=== PATIENT | male | born 1960 | race Caucasian/White ===

== ENCOUNTER 2017-04-16 11:34 | Emergency (ER) | payer BC, MEDICAID ==
[2017-04-16] MEDS ORDERED: Sodium Chloride 0.9% 1,000 ML IV ONE (11:46)
--- NOTE | 2017-04-16 12:01 | EDM.PDOC ---
ED HPI GENERAL MEDICAL PROBLEM - General Chief Complaint: General Stated Complaint: unresponsive 04/15 Time Seen by Provider: 04/16/17 11:45 Source of Information: Reports: Patient History Limitations: Reports: No Limitations - History of Present Illness INITIAL COMMENTS - FREE TEXT/NARRATIVE: This 57 yo male patient reports to the ED due to an episode of becoming unresponsive last night. The patient reports he was getting a message from his last night when he became unresponsive. According to the patient, his had called 911, but he woke up prior to EMS arrival and refused service. The patient reports that he continues to feel a little off today. The patient reports he is feeling very tired and out of energy today. The patient reports he has been under increased stress over the past couple of days. The patient reports he has been eating and drinking fine with no changes to his bowels. The patient denies a fever or cough. Onset Date: 04/15/17 Duration: Constant (but his symptoms are improving) Location: Reports: Generalized Quality: Reports: Pressure Severity: Mild Improves with: Reports: None Worsens with: Reports: None Associated Symptoms: Reports: Weakness (generalized). Denies: Chest Pain, Cough , Fever/Chills, Nausea/Vomiting, Shortness of Breath Back Pain Score (Numeric/FACES): 4 - Related Data Allergies Allergy/AdvReac Type Severity Reaction Status Date / Time No Known Allergies Allergy Verified 04/16/17 11:40 Home Meds: Home Meds Naproxen Sodium [Aleve] 2 cap PO DAILY 04/16/17 [History] Past Medical History Musculoskeletal History: Reports: Back Pain, Chronic - Infectious Disease History Infectious Disease History: Reports: Chicken Pox, Measles, Mumps - Past Surgical History Musculoskeletal Surgical History: Reports: Other (See Below) Other Musculoskeletal Surgeries/Procedures:: back fusion Social & Family History - Family History Family Medical History: Noncontributory ED ROS GENERAL - Review of Systems Review Of Systems: ROS reveals no pertinent complaints other than HPI. ED EXAM, GENERAL - Physical Exam Exam: See Below Exam Limited By: No Limitations General Appearance: Alert, WD/WN, No Apparent Distress Eye Exam: Bilateral Eye: EOMI, Normal Inspection, PERRL Ears: Normal External Exam, Normal Canal, Hearing Grossly Normal, Normal TMs Nose: Normal Inspection, Normal Mucosa, No Blood Throat/Mouth: Normal Inspection, Normal Lips, Normal Teeth, Normal Gums, Normal Oropharynx, Normal Voice, No Airway Compromise Head: Atraumatic, Normocephalic Neck: Normal Inspection, Supple, Non-Tender, Full Range of Motion Respiratory/Chest: No Respiratory Distress, Lungs Clear, Normal Breath Sounds, No Accessory Muscle Use, Chest Non-Tender Cardiovascular: Normal Peripheral Pulses, Regular Rate, Rhythm, No Edema, No Gallop, No JVD, No Murmur, No Rub GI/Abdominal: Normal Bowel Sounds, Soft, Non-Tender, No Organomegaly, No Distention, No Abnormal Bruit, No Mass (Male) Exam: Deferred Rectal (Males) Exam: Deferred Back Exam: Normal Inspection, Full Range of Motion, NT Extremities: Normal Inspection, Normal Range of Motion, Non-Tender, Normal Capillary Refill, No Pedal Edema Neurological: Alert Psychiatric: Anxious Skin Exam: Warm, Dry, Intact, Normal Color, No Rash Lymphatic: No Adenopathy Course - Vital Signs Last Recorded V/S: Last Vital Signs Temp 36.6 C 04/16/17 12:00 Pulse 70 04/16/17 12:00 Resp 16 04/16/17 12:00 BP 156/98 H 04/16/17 12:00 Pulse Ox 99 04/16/17 12:00 - Orders/Labs/Meds Orders: Active Orders 24 hr Category Date Time Status EKG Documentation Completion [RC] URGENT Care 04/16/17 11:45 Active Chest 1V Frontal [CR] Urgent Exams 04/16/17 11:45 Taken Sodium Chloride 0.9% [Normal Saline] 1,000 ml Med 04/16/17 11:46 Active IV .BOLUS Medication Orders Sodium Chloride (Normal Saline) 1,000 mls @ 500 mls/hr IV .BOLUS ONE Stop: 04/16/17 13:45 Last Admin: 04/16/17 11:56 Dose: 500 mls/hr Labs: Laboratory Tests 04/16/17 04/16/17 Range/Units 11:56 11:56 WBC 8.9 (5.0-10.0) 10^3/uL RBC 4.82 (4.6-6.2) 10^6/uL Hgb 16.0 (14.0-18.0) g/dL Hct 44.9 (40.0-54.0) % MCV 93.2 (80-100) fL MCH 33.2 (27.0-34.0) pg MCHC 35.6 H (33.0-35.0) g/dL Plt Count 207 (150-450) 10^3/uL Neut % (Auto) 62.2 (42.2-75.2) % Lymph % (Auto) 27.1 (20.5-50.1) % Mitchell % (Auto) 9.4 H (2-8) % Eos % (Auto) 1.1 (1.0-3.0) % Baso % (Auto) 0.2 (0.0-1.0) % Sodium 133 L (135-145) mmol/L Potassium 3.6 (3.6-5.0) mmol/L Chloride 103 (101-111) mmol/L Carbon Dioxide 22.0 (21.0-31.0) mmol/L Anion Gap 11.6 BUN 14 (7-18) mg/dL Creatinine 0.7 (0.6-1.3) mg/dL Est Cr Clr Drug Dosing 117.32 mL/min Estimated GFR (MDRD) > 60 BUN/Creatinine Ratio 20.00 Glucose 101 (74-105) mg/dL Calcium 9.1 (8.4-10.2) mg/dl Total Bilirubin 0.9 (0.2-1.0) mg/dL AST 68 H (10-42) IU/L ALT 87 H (10-60) IU/L Alkaline Phosphatase 56 (42-121) IU/L Troponin I < 0.02 (0.00-0.02) ng/ml Total Protein 7.2 (6.7-8.2) g/dl Albumin 4.0 (3.2-5.5) g/dl Globulin 3.2 Albumin/Globulin Ratio 1.25 Meds: Medications Generic Name Dose Route Start Last Admin Trade Name Freq PRN Reason Stop Dose Admin Sodium Chloride 1,000 mls @ 500 mls/hr 04/16/17 11:46 04/16/17 11:56 Normal Saline IV 04/16/17 13:45 500 mls/hr .BOLUS ONE Administration Departure - Departure Time of Disposition: 12:32 Disposition: Home, Self-Care 01 Condition: Fair Clinical Impression: Syncope Qualifiers: Syncope type: vasovagal syncope Qualified Code(s): R55 - Syncope and collapse - Discharge Information Instructions: Vasovagal Syncope, Adult Forms: ED Department Discharge Care Plan Goals: The patient was advised of the examination, EKG, lab and x-ray results during the visit. The patient was encouraged to take it easy for the rest of today. If the patient has any additional symptoms or concerns, the patient should either follow-up with his primary care facility or return to the emergency department. - My Orders Last 24 Hours: My Active Orders 04/16/17 11:45 EKG Documentation Completion [RC] URGENT Chest 1V Frontal [CR] Urgent 04/16/17 11:46 Sodium Chloride 0.9% [Normal Saline] 1,000 ml IV .BOLUS - Assessment/Plan Last 24 Hours: My Active Orders 04/16/17 11:45 EKG Documentation Completion [RC] URGENT Chest 1V Frontal [CR] Urgent 04/16/17 11:46 Sodium Chloride 0.9% [Normal Saline] 1,000 ml IV .BOLUS
[2017-04-16 12:22] LABS: ANION GAP 11.6; CHLORIDE,CL 103 mmol/L (101-111); SODIUM,NA 133 mmol/L (135-145)
--- NOTE | 2017-04-17 12:20 | EKG ---
04/16/2017- EARNEST VIVAS - EKG per my reading shows sinus rhythm at a rate of 64. [facility] /[id number]
== END 2017-04-16 12:38 | disposition home or self-care (01) ==
LOC: DL.ED 11:34
DX: R55 Syncope and collapse (principal); Z79.899 Other long term (current) drug therapy; Z98.1 Arthrodesis status
CPT/HCPCS: 36415; 71045; 80053; 84484; 85025; 93005; 96360; 99284; J7030

== ENCOUNTER 2022-06-29 09:40 | Emergency (ER) | payer BC ==
[2022-06-29] MEDS ORDERED: Lidocaine 1% with EPINEPHrine 1:100,000 20 ML MDV INFILT ONE (10:00)
[2022-06-29] MEDS ORDERED: Diphtheria,Pertussis(Acell),Tetanus Vaccine 0.5 ML Syringe IM ONE (10:00)
[2022-06-29] MEDS ORDERED: Bacitracin Oint 1 GM U/D Packet TOP ONE (10:01)
[2022-06-29] MEDS ORDERED: Bupivacaine 0.5% 30 ML SDV INFILT ONE (10:01)
== END 2022-06-29 10:40 | disposition home or self-care (01) ==
LOC: DL.ED 09:40
DX: S51.812A Laceration without foreign body of left forearm, initial encounter (principal); Z23 Encounter for immunization; W26.8XXA Contact with other sharp object(s), not elsewhere classified, initial encounter
CPT/HCPCS: 12002; 90471; 90715; 99282; 99283; A9270; J3490

== ENCOUNTER 2024-07-10 06:50 | Day surgery (SDC) | payer BC, MEDICARE ==
[~2024-07-10 06:50] MED LIST: Propofol 200 MG/20 ML SDV ONE
[2024-07-10] MEDS ORDERED: Propofol 200 MG/20 ML SDV IV ONE (06:51)
[2024-07-10] MEDS ORDERED: Lidocaine 2% 20 ML MDV NERVRT ONE (06:51)
[2024-07-10] MEDS ORDERED: Lactated Ringers 1,000 ML IV ONE (06:51)
[2024-07-10] MEDS: Lactated Ringers 1,000 ML IV SCH (07:24)
[2024-07-10] MEDS ORDERED: Ketorolac 30 MG/ML SDV ONE (08:45)
[2024-07-10] MEDS ORDERED: Nitroglycerin 2% Oint 1 GM UD Packet ONE (08:45)
[2024-07-10] MEDS ORDERED: Metoprolol Tartrate 5 MG/5 ML SDV ONE (08:45)
[2024-07-10] MEDS ORDERED: Dexamethasone 4 MG/ML SDV ONE (08:45)
[2024-07-10] MEDS ORDERED: Ondansetron 4 MG/2 ML SDV ONE (08:45)
[2024-07-10] MEDS ORDERED: Oxytocin 10 Units/1 ML SDV ONE (08:45)
[2024-07-10] MEDS ORDERED: ePHEDrine 50 MG/ML SDV ONE (08:45)
[2024-07-10] MEDS ORDERED: diphenhydrAMINE 50 MG/ML SDV ONE (08:45)
[2024-07-10] MEDS ORDERED: Phenylephrine 1% 10 MG/ML SDV ONE (08:45)
[2024-07-10] MEDS ORDERED: Naloxone 2 MG/2 ML Syringe ONE (08:46)
[2024-07-10] MEDS ORDERED: Atropine 0.4 MG/ML SDV ONE (08:46)
[2024-07-10] MEDS ORDERED: Neostigmine Methylsulfate 10 MG/10 ML MDV ONE (08:46)
[2024-07-10] MEDS ORDERED: Labetalol 20 MG/4 ML Syringe ONE (08:46)
[2024-07-10] MEDS ORDERED: Glycopyrrolate 0.2 MG/ML 2 ML SDV ONE (08:46)
[2024-07-10] MEDS ORDERED: EPINEPHrine 1:10,000 1 MG/10 ML Syringe ONE (08:46)
[2024-07-10] MEDS ORDERED: Rocuronium 100 MG/10 ML MDV ONE (08:47)
[2024-07-10] MEDS ORDERED: Succinylcholine 200 MG/10 ML MDV ONE (08:47)
[2024-07-10] MEDS ORDERED: Lidocaine 2% 20 ML MDV ONE (08:47)
[2024-07-10] MEDS ORDERED: Propofol 200 MG/20 ML SDV ONE (08:48)
== END 2024-07-10 10:12 | disposition home or self-care (01) ==
LOC: DL.ENDO 06:50
PROVIDERS: ATTEND Internal Medicine Gastroenterology
DX: Z12.11 Encounter for screening for malignant neoplasm of colon (principal); D12.0 Benign neoplasm of cecum; K57.30 Diverticulosis of large intestine without perforation or abscess without bleeding; J45.909 Unspecified asthma, uncomplicated
CPT/HCPCS: 45385; 88305; J0330; J2003; J2704; J7120; 00811

== ENCOUNTER 2024-10-07 12:32 | Emergency (ER) | payer MEDICARE ==
[2024-10-07] MEDS: Nitroglycerin 0.4 MG Tab.SL SL ONE (12:43)
[2024-10-07 12:44] LABS: BASOPHILS PERCENT AUTO 0.3 % (0.0-1.0); EOSINOPHILS PERCENT AUTO 1.7 % (1.0-3.0); LYMPHOCYTES PERCENT AUTO 31.6 % (20.5-50.1); MONOCYTES PERCENT AUTO 7.8 % (2-8); NEUTROPHILS PERCENT AUTO 58.6 % (42.2-75.2); PLATELET COUNT,PLT 212 10^3/uL (150-450); RED BLOOD CELL COUNT 5.09 10^6/uL (4.6-6.2); WHITE BLOOD CELL COUNT,WBC 11.9 10^3/uL (5.0-10.0)
[2024-10-07] MEDS: Sodium Chloride 0.9% 10 ML Syringe FLUSH PRN (12:44)
[2024-10-07] MEDS: Heparin Sodium 5,000 Units/ML Vial IVPUSH ONE (12:50)
[2024-10-07] MEDS: Heparin Sodium 5,000 Units/ML Vial ONE (12:50)
[2024-10-07] MEDS: Heparin Sodium/0.45% NaCl 25,000 UNITS/500 ML BAG IV SCH (12:53)
[2024-10-07] MEDS: Nitroglycerin 0.4 MG Tab.SL ONE ×2 (12:56)
[2024-10-07] MEDS: Heparin Sodium/0.45% NaCl 500 ML ONE (12:56)
[2024-10-07 13:00] LABS: INR 1.0 (0.9-1.2); PTT,PARTIAL THROMBOPLSTIN TIME 24.9 SEC (22.0-34.0)
[2024-10-07 13:10] LABS: B-TYPE NATRIURETIC PEPTIDE,BNP 99 pg/ml (0-100)
[2024-10-07 13:11] LABS: A/G RATIO 1.0; ALANINE AMINOTRANSFERASE,ALT 30 U/L (16-63); ASPARTATE AMNIOTRANSFERASE,AST 28 U/L (15-37); BILIRUBIN TOTAL 0.5 mg/dL (0.2-1.0); BLOOD UREA NITROGEN,BUN 13 mg/dL (7-18); CARBON DIOXIDE,CO2 26 mmol/L (21-32); CHLORIDE,CL 103 mmol/L (98-107); CREATININE 1.11 mg/dL (0.70-1.30); GLUCOSE RANDOM 149 mg/dL (70-99); POTASSIUM,K 3.7 mmol/L (3.5-5.1); PROTEIN TOTAL,TP 8.6 g/dL (6.4-8.2); SODIUM,NA 142 mmol/L (136-145)
[2024-10-07 13:12] LABS: ESTIMATED GFR 73 mL/min (>=60)
== END 2024-10-07 13:08 ==
LOC: DL.ED 12:32
DX: I21.19 ST elevation (STEMI) myocardial infarction involving other coronary artery of inferior wall (principal); I48.91 Unspecified atrial fibrillation; Z79.899 Other long term (current) drug therapy; Z86.16 Personal history of COVID-19
CPT/HCPCS: 36415; 71045; 80053; 83605; 83690; 83735; 83880; 84484; 85025; 85610; 85730; 92977; 93005; 93010; 96374; 96375; 99285; A9270; J1644; J2270; J3101